=== PATIENT | male | born 1980 | race Caucasian/White ===

== ENCOUNTER → 2017-10-11 10:15 | Outpatient (CLI) | payer OTHER, SELFPAY ==
--- NOTE | 2017-10-11 10:17 | RAD_ITS ---
STUDY: X-RAY - LEFT WRIST REASON FOR EXAM: Male, 36 years old. Wrist pain extending to thumb. TECHNIQUE: 3 view(s) of the wrist were obtained. COMPARISON: None. FINDINGS: Normal visualized distal radius and ulna. Normal radiocarpal articulation. Normal distal radioulnar articulation. Normal carpal bones. Normal carpal articulations. Normal carpometacarpal articulation of the thumb. Normal second through fifth carpometacarpal articulations. Normal visualized metacarpal bones. The soft tissue structures are unremarkable. RAD/Wrist min 3 Views IMPRESSION: No significant abnormality. Electronically Signed: Jordan Calle MD at 11:21 EST , Service support ,
--- NOTE | 2017-10-11 10:40 | RAD_ITS ---
STUDY: X-RAY - LEFT SHOULDER REASON FOR EXAM: Male, 36 years old. Shoulder pain. TECHNIQUE: 3 view(s) of the shoulder. COMPARISON: None. FINDINGS: Normal glenohumeral articulation. Normal acromioclavicular joint. Normal acromion. Normal humeral head and visualized proximal humerus. The soft tissue structures are unremarkable. Normal visualized pulmonary apex. RAD/Shoulder min 2 Views IMPRESSION: No significant abnormality. Electronically Signed: Jordan Calle MD at 11:19 EST , Service support ,
== END ==
PROVIDERS: Visit Provider Orthopaedic Surgery
DX: M25.532 Pain in left wrist (principal); M25.512 Pain in left shoulder
CPT/HCPCS: 73030; 73110